=== PATIENT | male | born 1965 ===

== ENCOUNTER → 2017-04-19 | Day surgery (SDC) | payer OTHER ==
[~2017-04-19] MED LIST: Iohexol 350mg/ml 100 ML ONE; Lidocaine 2% Inj (20ml) ONE; Midazolam 2 MG/2 ML VIAL ONE
[2017-04-19 12:32] VITALS: BMI 24.3
[2017-04-21 10:55] VITALS: RESP 19; O2SAT 98
--- NOTE | 2017-04-21 16:55 | CATH ---
APPROVED REPORT Procedure(s) performed: Complete Heart Catheterization HISTORY The patient is a 51 year-old male with a history of : tobacco history(1 PK) : The patient is a current smoker. INDICATION The indication(s) include : atypical chest pain (>24 hrs to = 48 hrs), non-STEMI (>24 hrs to = 48 hrs), abnormal ECG. CASE TECHNIQUE The patient was brought electively to the Cardiac Catheterization Laboratory in a fasting state and was prepped and draped in a sterile manner. The right femoral groin was infiltrated with 2% Lidocaine subcutaneous anesthesia. A sheath was inserted into the right femoral artery without difficulty. Coronary angiography was performed using coronary diagnostic catheters. The left coronary system was accessed and visualized with a Diagnostic catheter. The right coronary system was accessed and visualized with a Diagnostic catheter. The left ventricle was accessed and visualized with a Diagnostic catheter. Left ventricular/Aortic Valve gradient assessed on pullback. Left ventriculogram was performed in SHOEMAKER projection. Hemostasis was obtained with manual pressure following sheath removal without any complications. The patient tolerated the procedure well and there were no complications associated with the procedure. Vessel Analysis The patient's coronary anatomy is right dominant. The left main coronary artery is a medium size vessel without stenosis. The left main trifurcates to the left anterior descending, circumflex, and ramus. The left anterior descending artery is a large size vessel . There is a 90% stenosis in the proximal segment. AND IS IRREGULAR IN NATURE. The first diagonal branch is a small size vessel without stenosis. The circumflex artery is a small size vessel without stenosis. The first obtuse marginal branch is a small size vessel without significant stenosis. The ramus intermedius artery is a large size vessel with stenosis. There is a 90% stenosis in the proximal segment. The right coronary artery is a large size vessel without significant stenosis. Left Ventricle The left ventricle is NORMAL in size with NORMAL contractility. The left ventricular ejection fraction is estimated to be 65%. The left ventricular end diastolic pressure is 15 mmHg. There was no gradient across the aortic valve upon pullback. Conclusion Double Vessel CAD Recommendations Smoking Cessation Daily ASA with Plavix for at least one year Aggressive Medical Therapy WILL REFER FOR PCI
== END | disposition home or self-care (01) ==
LOC: C.CATHLAB 12:10
PROVIDERS: ATTEND Internal Medicine Cardiovascular Disease
DX: I25.10 Atherosclerotic heart disease of native coronary artery without angina pectoris (principal); I10 Essential (primary) hypertension; R94.31 Abnormal electrocardiogram [ECG] [EKG]; F17.210 Nicotine dependence, cigarettes, uncomplicated
CPT/HCPCS: 93458; C1769; C1887; J1644; J2250; J3010; Q9967